=== PATIENT | female | born 1945 ===

== ENCOUNTER 2018-12-03 16:13 | Outpatient (CLI) | payer OTHER ==
--- NOTE | 2018-12-03 16:52 | RAD ---
RIGHT FOREARM TWO VIEWS: 12/03/18 HISTORY: Fall. Right forearm pain and swelling. FINDINGS/IMPRESSION: There is a mildly displaced oblique fracture involving the distal ulnar metaphysis. POS: [facility]
== END 2018-12-03 16:14 | disposition home or self-care (01) ==
LOC: SCSRAD 16:13
PROVIDERS: ATTEND Family Medicine
DX: M79.601 Pain in right arm (principal); S59.001A Unspecified physeal fracture of lower end of ulna, right arm, initial encounter for closed fracture